=== PATIENT | female | born 1975 | race Hispanic/Latino ===

== ENCOUNTER 2017-06-24 13:42 | Emergency (ER) | payer SELFPAY ==
[2017-06-24 14:31] LABS: Basophils % (Auto) 0.5 % (0.0-1.8); Eosinophils % (Auto) 0.5 % (0.0-4.3); Hematocrit 42.6 % (30.3-42.9); Hemoglobin 14.2 gm/dl (10.1-14.3); Mean Corpuscular HGB Conc 33 % (30-34); Mean Corpuscular Hemoglobin 29 pg (28-32); Mean Corpuscular Volume 88 fl (79-97); Platelet Count 254 K/mm3 (140-440); Red Blood Count 4.84 M/mm3 (3.65-5.03); Red Cell Distribution Width 13.1 % (13.2-15.2); White Blood Count 14.8 K/mm3 (4.5-11.0)
[2017-06-24 14:55] LABS: Anion Gap 24 mmol/L; Blood Urea Nitrogen 14 mg/dL (7-17); Calcium 9.2 mg/dL (8.4-10.2); Carbon Dioxide 19 mmol/L (22-30); Chloride 97.6 mmol/L (98-107); Glucose 76 mg/dL (65-100); Potassium 3.6 mmol/L (3.6-5.0); Sodium 137 mmol/L (137-145)
[2017-06-24 15:14] LABS: Bilirubin,Urine NEG (Negative); Blood,Urine NEG (Negative); Ketones,Urine 20 mg/dL (Negative); Leukocyte Esterase,Urine TR (Negative); Mucus,Urine 3+ /HPF; Nitrite,Urine NEG (Negative)
[2017-06-24 15:43] LABS: Urine Drugs of Abuse Note Disclamer
--- NOTE | 2017-06-24 17:16 | Emergency Department Report ---
ED Medical Clearance HPI - General Chief complaint: Medical Clearance Stated complaint: WITHDRAWLS Time Seen by Provider: 06/24/17 14:32 Source: patient Mode of arrival: Wheelchair - History of Present Illness Initial comments: 41-year-old female here with complaint of withdrawal from methadone. Patient was on 140 mg a day of methadone and presents without methadone for 2 days. She recently moved from [place]. She denies fevers vomiting but does have some chills. Denies any other complaints at this time. Complaint: medical clearance request -: Gradual Place: home Alledged Intoxication: No Compliant with Home Medications: No Associated Symptoms: palpitations, fever/chills, nausea/vomiting Treatments Prior to Arrival: none Allergies/Adverse reactions: Allergies Allergy/AdvReac Type Severity Reaction Status Date / Time Penicillins Allergy Rash Verified 06/24/17 14:01 ED Review of Systems ROS: Stated complaint: WITHDRAWLS Other details as noted in HPI Constitutional: chills, malaise. denies: fever Eyes: denies: eye pain, eye discharge, vision change ENT: denies: ear pain, throat pain Respiratory: denies: cough, shortness of breath, wheezing Cardiovascular: denies: chest pain, palpitations Endocrine: no symptoms reported Gastrointestinal: denies: abdominal pain, nausea, diarrhea Genitourinary: denies: urgency, dysuria, discharge Musculoskeletal: denies: back pain, joint swelling, arthralgia Skin: denies: rash, lesions Neurological: denies: headache, weakness, paresthesias Psychiatric: denies: anxiety, depression Hematological/Lymphatic: denies: easy bleeding, easy bruising ED Past Medical Hx - Past Medical History Hx Liver Disease: Yes (hepatitis C) Hx Psychiatric Treatment: Yes (bipolar ; schizophrenia ?) - Surgical History Hx Cholecystectomy: Yes Additional Surgical History: . tubal ligation - Family History Family history: no significant - Social History Smoking Status: Current Every Day Smoker Substance Use Type: Other ED Physical Exam - General Limitations: No Limitations General appearance: alert, in no apparent distress, other (patient asleep and room) - Head Head exam: Present: atraumatic, normocephalic - Eye Eye exam: Present: normal appearance - ENT ENT exam: Present: mucous membranes moist - Neck Neck exam: Present: normal inspection - Respiratory Respiratory exam: Present: normal lung sounds bilaterally. Absent: respiratory distress - Cardiovascular Cardiovascular Exam: Present: regular rate, normal rhythm. Absent: systolic murmur, diastolic murmur, rubs, gallop - GI/Abdominal GI/Abdominal exam: Present: soft, normal bowel sounds - Extremities Exam Extremities exam: Present: normal inspection - Back Exam Back exam: Present: normal inspection - Neurological Exam Neurological exam: Present: alert, oriented X3 - Psychiatric Psychiatric exam: Present: normal affect, normal mood. Absent: homicidal ideation, suicidal ideation - Skin Skin exam: Present: warm, dry, intact, normal color. Absent: rash ED Course Vital Signs 06/24/17 06/24/17 06/24/17 13:52 14:17 14:31 Temperature 98.3 F Pulse Rate 113 H 95 H Respiratory 24 25 H Rate Blood Pressure 119/90 127/84 129/75 O2 Sat by Pulse 97 Oximetry 06/24/17 06/24/17 06/24/17 14:45 15:00 15:15 Temperature Pulse Rate 97 H 91 H 103 H Respiratory 28 H 19 17 Rate Blood Pressure 127/84 117/75 129/75 O2 Sat by Pulse Oximetry 06/24/17 06/24/17 06/24/17 15:30 15:45 16:00 Temperature Pulse Rate 87 89 86 Respiratory 19 32 H 20 Rate Blood Pressure 106/68 117/75 107/71 O2 Sat by Pulse Oximetry 06/24/17 06/24/17 16:15 16:30 Temperature Pulse Rate 88 91 H Respiratory 16 21 Rate Blood Pressure 107/71 119/70 O2 Sat by Pulse Oximetry ED Medical Decision Making - Lab Data Result diagrams: 06/24/17 14:08 06/24/17 14:08 Laboratory Results - last 24 hr 06/24/17 06/24/17 06/24/17 14:08 14:08 14:08 WBC RBC Hgb Hct MCV MCH MCHC RDW Plt Count Lymph % (Auto) [place] % (Auto) Eos % (Auto) Baso % (Auto) Lymph # [place] # Eos # Baso # Seg Neutrophils % Seg Neutrophils # Sodium 137 Potassium 3.6 Chloride 97.6 L Carbon Dioxide 19 L Anion Gap 24 BUN 14 Creatinine 0.7 Estimated GFR > 60 BUN/Creatinine Ratio 20.00 Glucose 76 Calcium 9.2 HCG, Qual Negative Urine Color Urine Turbidity Urine pH Ur Specific [place] Urine Protein Urine Glucose (UA) Urine Ketones Urine Blood Urine Nitrite Urine Bilirubin Urine Urobilinogen Ur Leukocyte Esterase Urine WBC (Auto) Urine RBC (Auto) U Epithel Cells (Auto) Urine Mucus Urine Opiates Screen Urine Methadone Screen Ur Barbiturates Screen Ur Phencyclidine Scrn Ur Amphetamines Screen U Benzodiazepines Scrn Urine Cocaine Screen U Marijuana (THC) Screen Drugs of Abuse Note Plasma/Serum Alcohol < 0.01 06/24/17 06/24/17 06/24/17 14:08 14:45 14:45 WBC 14.8 H RBC 4.84 Hgb 14.2 Hct 42.6 MCV 88 MCH 29 MCHC 33 RDW 13.1 L Plt Count 254 Lymph % (Auto) 12.4 L [place] % (Auto) 5.9 Eos % (Auto) 0.5 Baso % (Auto) 0.5 Lymph # 1.8 [place] # 0.9 H Eos # 0.1 Baso # 0.1 Seg Neutrophils % 80.7 H Seg Neutrophils # 11.9 H Sodium Potassium Chloride Carbon Dioxide Anion Gap BUN Creatinine Estimated GFR BUN/Creatinine Ratio Glucose Calcium HCG, Qual Urine Color Zainab Urine Turbidity Cloudy Urine pH 5.0 Ur Specific [place] 1.030 Urine Protein 100 mg/dl Urine Glucose (UA) Neg Urine Ketones 20 Urine Blood Neg Urine Nitrite Neg Urine Bilirubin Neg Urine Urobilinogen 4.0 Ur Leukocyte Esterase Tr Urine WBC (Auto) 3.0 Urine RBC (Auto) 3.0 U Epithel Cells (Auto) 47.0 H Urine Mucus 3+ Urine Opiates Screen Presumptive negative Urine Methadone Screen Presumptive positive Ur Barbiturates Screen Presumptive negative Ur Phencyclidine Scrn Presumptive negative Ur Amphetamines Screen Presumptive positive U Benzodiazepines Scrn Presumptive negative Urine Cocaine Screen Presumptive positive U Marijuana (THC) Screen Presumptive negative Drugs of Abuse Note Disclamer Plasma/Serum Alcohol - Medical Decision Making 41-year-old female who presents emergency Department with withdrawal from methadone. Slightly high white count but otherwise her labs are unremarkable. Plan to discharge patient home. ED Disposition Clinical Impression: Opiate withdrawal Disposition: DC-01 TO HOME OR SELFCARE Is pt being admited?: No Condition: Stable Instructions: Opioid Withdrawal (ED) Referrals: PRIMARY CARE, [Primary Care Provider] - 3-5 Days
[2017-06-24 18:27] VITALS: BP 95/64
== END 2017-06-24 18:34 | disposition home or self-care (01) ==
LOC: ED 13:42
DX: F11.23 Opioid dependence with withdrawal (principal); F31.9 Bipolar disorder, unspecified; F20.9 Schizophrenia, unspecified; F17.200 Nicotine dependence, unspecified, uncomplicated
CPT/HCPCS: 36415; 80048; 80307; 81001; 84703; 85025; 99283; G0480; 80320

== ENCOUNTER 2017-06-25 00:36 | Emergency (ER) | payer OTHER ==
[2017-06-25 03:12] LABS: Basophils % (Auto) 0.5 % (0.0-1.8); Hematocrit 44.2 % (30.3-42.9); Hemoglobin 15.1 gm/dl (10.1-14.3); Mean Corpuscular HGB Conc 34 % (30-34); Mean Corpuscular Hemoglobin 30 pg (28-32); Mean Corpuscular Volume 89 fl (79-97); Platelet Count 225 K/mm3 (140-440); Red Cell Distribution Width 13.2 % (13.2-15.2); White Blood Count 13.4 K/mm3 (4.5-11.0)
[2017-06-25 03:35] LABS: Alanine Aminotransferase 25 units/L (7-56); Albumin 4.5 g/dL (3.9-5); Albumin/Globulin Ratio 1.2 %; Alkaline Phosphatase 85 units/L (35-129); Anion Gap 24 mmol/L; Blood Urea Nitrogen 14 mg/dL (7-17); Calcium 9.7 mg/dL (8.4-10.2); Carbon Dioxide 20 mmol/L (22-30); Chloride 97.6 mmol/L (98-107); Glucose 64 mg/dL (65-100); Lipase 21 units/L (13-60); Potassium 3.8 mmol/L (3.6-5.0); Sodium 138 mmol/L (137-145); Total Protein 8.2 g/dL (6.3-8.2)
[2017-06-25 08:10] LABS: Bilirubin,Urine NEG (Negative); Blood,Urine NEG (Negative); Ketones,Urine 80 mg/dL (Negative); Leukocyte Esterase,Urine NEG (Negative); Mucus,Urine 3+ /HPF; Nitrite,Urine NEG (Negative)
[2017-06-25] MEDS ORDERED: TORADOL IV ONE (09:32)
[2017-06-25] MEDS ORDERED: BENTYL IM ONE (09:32)
[2017-06-25] MEDS ORDERED: ZOFRAN IV ONE (09:32)
[2017-06-25] MEDS ORDERED: NACL ONE (09:58)
[2017-06-25] MEDS ORDERED: D5NS 1,000 ML IV SCH (10:00)
--- NOTE | 2017-06-25 11:56 | Cat Scan Report ---
CT ABDOMEN AND PELVIS WITH CONTRAST: 06/25/17 CLINICAL: Abdominal pain. History of pancreatitis. COMPARISON: None. TECHNIQUE: Volumetric acquisition and 1.25 millimeter scan reconstructions after the uneventful intravenous injection of 100 cc Omnipaque 300. Consent was obtained prior to the administration of contrast. Oral contrast was not given. FINDINGS: Abdomen: Patchy groundglass opacities in the lung bases and a 1.2 cm peripheral left lower lobe nodular opacity. Bilateral lower lobe subsegmental atelectasis versus scar.Normal liver and bile ducts status post cholecystectomy. The pancreas is small but otherwise normal. No pancreatic calcifications or fluid collections. Normal stomach, duodenum and spleen. A few prominent celiac lymph nodes with the largest measuring 1.5 cm. Normal aorta and inferior vena cava. Normal adrenal glands and kidneys. The renal collecting systems and ureters are nondilated. Small bowel is normal.Diverticulosis of the splenic flexure of the colon but no signs of diverticulitis. The rest of the colon is normal. Status post appendectomy. No mass, lymphadenopathy or ascites.No pneumoperitoneum. Pelvis: Normal urinary bladder.A small retroverted uterus. Normal ovaries with small follicles. Normal rectum and sigmoid colon.. Bone windows demonstrate no bone lesion. IMPRESSION:1. Bibasal patchy groundglass lung opacities with an uncertain etiology. 2. A 1.5 cm left lower lobe peripheral nodular lung opacity.Consider CT chest without contrast. 3. A small but otherwise normal pancreas. No signs of acute pancreatitis. 4. Status post cholecystectomy and appendectomy. 5. Mild diverticulosis of the splenic flexure of the colon but no signs of diverticulitis.
--- NOTE | 2017-06-25 13:50 | Emergency Department Report ---
ED Abdominal Pain HPI - General Chief Complaint: Abdominal Pain Stated Complaint: GENERAL ILLNESS Time Seen by Provider: 06/25/17 09:23 Source: patient Mode of arrival: Ambulatory Limitations: No Limitations - History of Present Illness Initial Comments: 41 yo Female with a past medical history heroin abuse, hepatitis C, bipolar, schizophrenia, previous cholecystectomy, , tubal ligation, and questionable appendectomy presents to Hospital complains of abdominal pain 2 days. He complains of mainly generalized abdominal cramps. Positive intermittent diarrhea. Positive nausea without vomiting. No persistent fever, dysuria, or hematuria. Patient was seen here yesterday by Dr. Bernard requesting methadone. Patient just moved here from [place] and has not had her methadone 140 mg daily 3 days. Patient states he supposedly was a methadone clinic in [place] but did not have a way to get there and in no Severity scale (0 -10): 10 - Related Data Previous Rx's Medication Instructions Recorded Last Taken Type Ibuprofen [Motrin] 800 mg PO Q8HR PRN #30 tablet 06/25/17 Unknown Rx Loperamide [Imodium] 2 mg PO Q2HR PRN #20 capsule 06/25/17 Unknown Rx Ondansetron [Zofran Odt] 4 mg PO Q8HR PRN #20 tab.rapdis 06/25/17 Unknown Rx Allergies Allergy/AdvReac Type Severity Reaction Status Date / Time Penicillins Allergy Rash Verified 06/25/17 06:01 ED Review of Systems ROS: Stated complaint: GENERAL ILLNESS Other details as noted in HPI Comment: All other systems reviewed and negative Other: Constitutional: No fevers chills Eyes: No eye pain visual changes ENT: No ear pain or throat pain Neck: Denies pain Respiratory: Denies cough wheezing shortness of breath Cardiovascular: Denies chest pain, palpitations, syncope GI: As per HPI : Denies dysuria Musculoskeletal: Denies back pain Skin: Denies rash, lesions, erythema Neurologic: Denies headache, numbness, weakness Psychiatric: Denies suicidal ideation, hallucinations ED Past Medical Hx - Past Medical History Previous Medical History?: Yes Hx Liver Disease: Yes (hepatitis C) Hx Psychiatric Treatment: Yes (bipolar ; schizophrenia ?) - Surgical History Past Surgical History?: Yes Hx Cholecystectomy: Yes Additional Surgical History: . tubal ligation - Social History Smoking Status: Unknown if ever smoked Substance Use Type: None - Medications Home Medications: Home Medications Medication Instructions Recorded Confirmed Last Taken Type Ibuprofen [Motrin] 800 mg PO Q8HR PRN #30 tablet 06/25/17 Unknown Rx Loperamide [Imodium] 2 mg PO Q2HR PRN #20 capsule 06/25/17 Unknown Rx Ondansetron [Zofran Odt] 4 mg PO Q8HR PRN #20 tab.rapdis 06/25/17 Unknown Rx ED Physical Exam - General Limitations: No Limitations - Other Other exam information: General: No limitations, patient is alert in no acute distress Head exam: Atraumatic, normocephalic Eyes exam: Normal appearance ENT: Moist mucous membrane, normal oropharynx Neck exam: Normal inspection, full range of motion, no meningismus nontender Respiratory exam: Clear to auscultation bilateral, no wheezes, rales, crackles Cardiovascular: Normal rate and rhythm, normal heart sounds Abdomen: Soft, nondistended, generalized tenderness, with normal bowel sounds, no rebound, or guarding Extremity: Full range of motion normal inspection no deformity Back: Normal Inspection, full range of motion, no tenderness Neurologic: Alert, oriented x3, cranial nerves intact, no motor or sensory deficit Psychiatric: normal affect, normal mood Skin: Warm, dry, intact ED Course Vital Signs 06/25/17 06/25/17 06/25/17 02:25 06:00 07:22 Temperature 97.9 F Pulse Rate 81 72 Respiratory 20 20 Rate Blood Pressure Blood Pressure 126/79 123/76 [Right] O2 Sat by Pulse 100 99 100 Oximetry 06/25/17 06/25/17 06/25/17 08:41 08:48 10:00 Temperature 97.8 F Pulse Rate 84 63 59 L Respiratory 20 14 12 Rate Blood Pressure 97/66 Blood Pressure 98/60 [Right] O2 Sat by Pulse 100 Oximetry 06/25/17 06/25/17 12:43 14:00 Temperature Pulse Rate 71 96 H Respiratory 12 27 H Rate Blood Pressure 99/60 109/80 Blood Pressure [Right] O2 Sat by Pulse 98 100 Oximetry - Reevaluation(s) Reevaluation #1: 06/25/17 14:11 Patient received D5NS, Toradol, and Zofran. No vomiting and ED. Charge nurse recognized patient from yesterday's visit. States that patient was here with her boyfriend at this time was also requesting narcotics. He apparently threatened suicide if he did not get his methadone and was subsequently transferred. Patient was discharged home. Reevaluation #2: 06/25/17 14:30 Patient crying stating that she needs some narcotics. I explained I would not be treating her with narcotics at this time. Patient now stating she is homeless, does not have any money, does not know where her was taken to. I informed her we will provide long-term information and let her know which facility her was taken to. ED Medical Decision Making - Lab Data Result diagrams: 06/25/17 02:44 06/25/17 02:44 Lab Results 06/25/17 06/25/17 06/25/17 Range/Units 02:44 02:44 07:35 WBC 13.4 H (4.5-11.0) K/mm3 RBC 5.00 (3.65-5.03) M/mm3 Hgb 15.1 H (10.1-14.3) gm/dl Hct 44.2 H (30.3-42.9) % MCV 89 (79-97) fl MCH 30 (28-32) pg MCHC 34 (30-34) % RDW 13.2 (13.2-15.2) % Plt Count 225 (140-440) K/mm3 Lymph % (Auto) 23.7 (13.4-35.0) % [place] % (Auto) 5.2 (0.0-7.3) % Eos % (Auto) 1.0 (0.0-4.3) % Baso % (Auto) 0.5 (0.0-1.8) % Lymph # 3.2 (1.2-5.4) K/mm3 [place] # 0.7 (0.0-0.8) K/mm3 Eos # 0.1 (0.0-0.4) K/mm3 Baso # 0.1 (0.0-0.1) K/mm3 Seg Neutrophils % 69.6 (40.0-70.0) % Seg Neutrophils # 9.4 H (1.8-7.7) K/mm3 Sodium 138 (137-145) mmol/L Potassium 3.8 (3.6-5.0) mmol/L Chloride 97.6 L (98-107) mmol/L Carbon Dioxide 20 L (22-30) mmol/L Anion Gap 24 mmol/L BUN 14 (7-17) mg/dL Creatinine 0.7 (0.7-1.2) mg/dL Estimated GFR > 60 ml/min BUN/Creatinine Ratio 20.00 % Glucose 64 L (65-100) mg/dL Calcium 9.7 (8.4-10.2) mg/dL Total Bilirubin 1.30 H (0.1-1.2) mg/dL AST 30 (5-40) units/L ALT 25 (7-56) units/L Alkaline Phosphatase 85 (35-129) units/L Total Protein 8.2 (6.3-8.2) g/dL Albumin 4.5 (3.9-5) g/dL Albumin/Globulin Ratio 1.2 % Lipase 21 (13-60) units/L Urine Color Zainab (Yellow) Urine Turbidity Cloudy (Clear) Urine pH 5.0 (5.0-7.0) Ur Specific [place] 1.030 (1.003-1.030) Urine Protein 30 mg/dl (Negative) mg/dL Urine Glucose (UA) Neg (Negative) mg/dL Urine Ketones 80 (Negative) mg/dL Urine Blood Neg (Negative) Urine Nitrite Neg (Negative) Urine Bilirubin Neg (Negative) Urine Urobilinogen 4.0 (<2.0) mg/dL Ur Leukocyte Esterase Neg (Negative) Urine WBC (Auto) 5.0 (0.0-6.0) /HPF Urine RBC (Auto) 7.0 (0.0-6.0) /HPF U Epithel Cells (Auto) 23.0 H (0-13.0) /HPF Ur Transition Epith Cell 1 /HPF Urine Mucus 3+ /HPF - Radiology Data Radiology results: report reviewed CT abdomen and pelvis IV contrast: Mild basilar patchy groundglass lung opacities with an uncertain etiology.1.5 cm left lower lobe peripheral nodule lung opacity. Considered CT without contrast. Small but normal pancreas. No acute pancreatitis. Previous Cholecystectomy and appendectomy. Mild diverticulosis of the splenic flexure of the colon but no signs of diverticulitis - Medical Decision Making Patient sx likely secondary to opiate withdrawal. Patient has been on methadone chronically without 3 days. Patient needs to follow-up regarding methadone dosing and further prescriptions. Symptomatic treatment will be provided for opiate withdrawal. sbp 100 prior to d/c. Patient provided information regarding her 's transfer and information for a long-term - Differential Diagnosis opiate withdrawal, pancreatis, gastritis Critical Care Time: No Critical care attestation.: If time is entered above; I have spent that time in minutes in the direct care of this critically ill patient, excluding procedure time. ED Disposition Clinical Impression: Opiate withdrawal, Abdominal pain, Dehydration, Homeless, History of heroin use Disposition: TO HOME OR SELFCARE Is pt being admited?: No Does the pt Need Aspirin: No Condition: Stable Instructions: Abdominal Pain (ED), Opioid Withdrawal (ED) Additional Instructions: Take the medication as prescribed. Return if symptoms worsen. Prescriptions: Ibuprofen [Motrin] 800 mg PO Q8HR PRN #30 tablet PRN Reason: Pain Loperamide [Imodium] 2 mg PO Q2HR PRN #20 capsule PRN Reason: Diarrhea Ondansetron [Zofran Odt] 4 mg PO Q8HR PRN #20 tab.rapdis PRN Reason: Nausea And Vomiting Referrals: [facility] [Outside] - 3-5 Days [facility] [Provider Group] - 3-5 Days BAL RICHARDS MD [Staff Physician] - 3-5 Days Time of Disposition: 16:09
[2017-06-25 16:07] VITALS: BP 109/80
== END 2017-06-25 16:43 | disposition home or self-care (01) ==
LOC: ED 00:36
DX: R10.84 Generalized abdominal pain (principal); F11.23 Opioid dependence with withdrawal; E86.0 Dehydration; F31.9 Bipolar disorder, unspecified; Z86.19 Personal history of other infectious and parasitic diseases; Z88.0 Allergy status to penicillin
CPT/HCPCS: 36415; 74177; 80053; 81001; 83690; 85025; 96361; 96372; 96374; 96375; 99284; J0500; J1885; J2405; J7042; Q9967